=== PATIENT | female | born 1985 | race Caucasian/White ===

== ENCOUNTER 2016-12-27 09:17 | Emergency (ER) | payer OTHER ==
[~2016-12-27 09:17] MED LIST: ABILIFY5 M1; BENZOTROPINE; BENZTROPINE ME0.5 MG PO; BENZTROPINE MESY PO; BUSPIRONE10 M1 PO; CEL20 PO; CLONAZEPAM; COG1 PO; DEP250 PO; DILANTIN100 MG PO; DIVALPROEX; DIVALPROEX SOD500 MG PO; DOK100 M2 PO; DOK100 MG PO; ECONAZOLE NITRATE1% TP; FENOFIBRATE145 M1 PO; FERROUS SULFAT325 M2 PO; KEP500 PO; KEPPRA; KLO0.5 PO; LAC30L PO; MAG PO; MAGOXIDE; MEDROXYPROG150 MG/ML IM; MEDROXYPROGESTERONE PO; PAXIL20 MG PO; PHE30 PO; QUDEXY XR100 MG PO; SEROQUEL; SEROQUEL XR400 M1 PO; SEROQUEL XR400 MG PO; SEROQUEL200 MG PO; TEG200 PO; THERA-M1 TA1 PO; TRAZODONE; TRAZODONE HCL PO; TRAZODONE HCL150 MG PO; VITAMIN D1000 IU PO; VITAMIN D32000 I2 PO; [UNRECOGNIZED DRUG - OTHER]
[2016-12-27 10:09] LABS: UA SPECIFIC GRAVITY 1.025 (1.005-1.035); microscopic required? YES; urine erythrocyte TRACE (NEGATIVE)
[2016-12-27 10:13] LABS: BASOPHIL % 0.4 % (0-2); PLATELET COUNT 188 x10^3mcL (130-400); RED CELL DISTRIBUTION WIDTH 12.4 % (11.5-14.5)
[2016-12-27 10:31] LABS: T3 TOTAL 0.57 ng/mL
[2016-12-27 10:32] LABS: FREE T4 1.04 ng/dL (0.76-1.46); FREE THYROXINE INDEX 2.7 ug/dL (1.4-4.5); T4(THYROXINE) 7.6 ug/dL (4.7-13.3)
[2016-12-27 10:33] LABS: CALCIUM 9.1 mg/dL (8.5-10.1); CARBON DIOXIDE 20.7 mmol/L (21-32); CHLORIDE SERUM 106 mmol/L (98-107); CREATININE SERUM 0.9 mg/dL (0.6-1.0); GFR1 > 60 mL/min; GLUCOSE SERUM 121 mg/dL (74-106); POTASSIUM SERUM 3.4 mmol/L (3.5-5.1); SODIUM SERUM 140 mmol/L (136-145)
[2016-12-27 10:47] LABS: CK-MB < 0.5 ng/mL (0-3.6); CREATINE KINASE 68 U/L (26-192)
[2016-12-27 10:52] LABS: ALBUMIN 3.5 g/dL (3.4-5.0); ALKALINE PHOSPHATASE 71 U/L (46-116); ALT/SGPT 89 U/L (14-59); AST/SGOT 64 U/L (15-37); BILIRUBIN TOTAL 1.3 mg/dL (0.20-1.00); TOTAL PROTEIN, SERUM 8.1 g/dL (6.4-8.2)
[2016-12-27 11:35] VITALS: BP 113/78
[2016-12-27 11:46] LABS: C REACTIVE PROTEIN 33.8 mg/dL (<=0.9)
[2016-12-30 07:25] LABS: ERYTHROCYTE SED RATE 72 mm/hr (0-20)
== END 2016-12-27 12:12 | disposition home or self-care (01) ==
LOC: EDBD 09:17 → ED 09:17
PROVIDERS: Specialist
DX: N39.0 Urinary tract infection, site not specified (principal); I10 Essential (primary) hypertension
CPT/HCPCS: 36600; 83880; 84439; J0696; J1885; J7030

== ENCOUNTER 2017-01-16 02:03 | Emergency (ER) | payer OTHER ==
[~2017-01-16] VITALS: Ht 162.6 cm; Wt 113.4 kg
[2017-01-16 04:04] LABS: AMPHETAMINE QUAL UR POSITIVE (NEG <=1000)
[2017-01-16 06:10] VITALS: BP 123/76
== END 2017-01-16 06:10 | disposition home or self-care (01) ==
LOC: ED 02:03
PROVIDERS: Emergency Medicine
DX: F15.10 Other stimulant abuse, uncomplicated (principal); F19.10 Other psychoactive substance abuse, uncomplicated
CPT/HCPCS: Q0162

== ENCOUNTER 2017-02-03 19:39 | Emergency (ER) | payer OTHER ==
[2017-02-03 23:10] LABS: BASOPHIL % 0.8 % (0-2); PLATELET COUNT 229 x10^3mcL (130-400); RED CELL DISTRIBUTION WIDTH 13.3 % (11.5-14.5)
[2017-02-03 23:19] LABS: CARBON DIOXIDE 26.3 mmol/L (21-32); CHLORIDE SERUM 104 mmol/L (98-107); CREATININE SERUM 0.8 mg/dL (0.6-1.0); GFR1 > 60 mL/min; GLUCOSE SERUM 102 mg/dL (74-106); POTASSIUM SERUM 3.8 mmol/L (3.5-5.1); SODIUM SERUM 140 mmol/L (136-145)
[2017-02-03 23:25] LABS: ALBUMIN 3.8 g/dL (3.4-5.0); ALKALINE PHOSPHATASE 60 U/L (46-116); ALT/SGPT 37 U/L (14-59); AST/SGOT 25 U/L (15-37); TOTAL PROTEIN, SERUM 8.2 g/dL (6.4-8.2)
[2017-02-03 23:28] LABS: AMPHETAMINE QUAL UR NONE DETECTED (NEG <=1000)
[2017-02-03 23:46] VITALS: BP 124/82
== END 2017-02-03 23:47 | disposition home or self-care (01) ==
LOC: ED 19:39
PROVIDERS: Emergency Medicine
DX: R51 Headache (principal); R20.0 Anesthesia of skin; I10 Essential (primary) hypertension; F31.9 Bipolar disorder, unspecified; F79 Unspecified intellectual disabilities; F91.9 Conduct disorder, unspecified; Z79.1 Long term (current) use of non-steroidal anti-inflammatories (NSAID); Z79.899 Other long term (current) drug therapy
CPT/HCPCS: 36415

== ENCOUNTER 2017-07-24 17:42 | Emergency (ER) | payer OTHER ==
[~2017-07-24] VITALS: Ht 167.6 cm; Wt 104.3 kg
[2017-07-24 17:49] VITALS: Ht 167.6 cm; Wt 104.3 kg
[2017-07-24 18:59] LABS: BASOPHIL % 0.6 % (0-2); PLATELET COUNT 213 x10^3mcL (130-400); RED CELL DISTRIBUTION WIDTH 13.3 % (11.5-14.5)
[2017-07-24 19:07] LABS: CALCIUM 9.1 mg/dL (8.5-10.1); CARBON DIOXIDE 26.3 mmol/L (21-32); CHLORIDE SERUM 105 mmol/L (98-107); CREATININE SERUM 0.8 mg/dL (0.6-1.0); GFR1 > 60 mL/min; GLUCOSE SERUM 116 mg/dL (74-106); POTASSIUM SERUM 3.5 mmol/L (3.5-5.1); SODIUM SERUM 142 mmol/L (136-145)
[2017-07-24 19:11] LABS: ALBUMIN 3.5 g/dL (3.4-5.0); ALKALINE PHOSPHATASE 66 U/L (46-116); ALT/SGPT 58 U/L (14-59); AST/SGOT 48 U/L (15-37); LIPASE 123 IU/L (73-393); TOTAL PROTEIN, SERUM 7.7 g/dL (6.4-8.2)
[2017-07-24 20:48] VITALS: BP 125/55
== END 2017-07-24 20:48 | disposition home or self-care (01) ==
LOC: ED 17:42
PROVIDERS: Emergency Medicine
DX: G40.409 Other generalized epilepsy and epileptic syndromes, not intractable, without status epilepticus (principal)
CPT/HCPCS: 36415

== ENCOUNTER 2017-07-27 08:13 | Emergency (ER) | payer OTHER ==
[~2017-07-27] VITALS: Ht 157.5 cm; Wt 115.7 kg
[2017-07-27 08:18] VITALS: Ht 157.5 cm; Wt 115.7 kg
[2017-07-27 11:02] VITALS: BP 119/71
== END 2017-07-27 11:02 | disposition home or self-care (01) ==
LOC: ED 08:13
DX: R56.9 Unspecified convulsions (principal); I10 Essential (primary) hypertension; F31.9 Bipolar disorder, unspecified

== ENCOUNTER 2017-09-21 21:40 | Inpatient (IN) | payer OTHER ==
[~2017-09-21] VITALS: Ht 157.5 cm; Wt 118.8 kg
[~2017-09-21 21:40] MED LIST changes: +THERA-M W/MINER1 TAB PO; -THERA-M1 TA1 PO
[2017-09-21 22:32] LABS: microscopic required? NO
[2017-09-21 22:37] LABS: BASOPHIL % 0.8 % (0-2); PLATELET COUNT 190 x10^3mcL (130-400)
[2017-09-21 22:41] LABS: urine erythrocyte NEGATIVE (NEGATIVE)
[2017-09-21 22:50] LABS: CALCIUM 9.2 mg/dL (8.5-10.1); CARBON DIOXIDE 28.5 mmol/L (21-32); CHLORIDE SERUM 105 mmol/L (98-107); CREATININE SERUM 0.7 mg/dL (0.6-1.0); GFR1 > 60 mL/min; GLUCOSE SERUM 123 mg/dL (74-106); POTASSIUM SERUM 3.6 mmol/L (3.5-5.1); SODIUM SERUM 141 mmol/L (136-145)
[2017-09-21 22:55] LABS: AMPHETAMINE QUAL UR NONE DETECTED (NEG <=1000)
[2017-09-21 22:55] LABS: ALBUMIN 3.4 g/dL (3.4-5.0); ALKALINE PHOSPHATASE 77 U/L (46-116); ALT/SGPT 49 U/L (14-59); AST/SGOT 35 U/L (15-37); BILIRUBIN TOTAL 0.24 mg/dL (0.20-1.00); TOTAL PROTEIN, SERUM 7.5 g/dL (6.4-8.2)
[2017-09-22 00:31] VITALS: BP 116/61
[2017-09-22 01:50] LABS: MAGNESIUM 1.8 mg/dL (1.8-2.4); PHOSPHOROUS 3.4 mg/dL (2.5-4.9)
[2017-09-22 01:57] LABS: CHOLESTEROL/HDL RATIO 12.7
[2017-09-22 01:59] LABS: T3 TOTAL 0.89 ng/mL
[2017-09-22 02:01] LABS: FREE T4 0.91 ng/dL (0.76-1.46); FREE THYROXINE INDEX 2.6 ug/dL (1.4-4.5)
[2017-09-22 06:18] LABS: BASOPHIL % 0.4 % (0-2); CALCIUM 8.7 mg/dL (8.5-10.1); CARBON DIOXIDE 24.9 mmol/L (21-32); CHLORIDE SERUM 107 mmol/L (98-107); CREATININE SERUM 0.6 mg/dL (0.6-1.0); GFR1 > 60 mL/min; GLUCOSE SERUM 123 mg/dL (74-106); MAGNESIUM 1.8 mg/dL (1.8-2.4); PHOSPHOROUS 3.5 mg/dL (2.5-4.9); PLATELET COUNT 176 x10^3mcL (130-400); POTASSIUM SERUM 3.7 mmol/L (3.5-5.1); SODIUM SERUM 141 mmol/L (136-145)
[2017-09-22 06:23] VITALS: BP 95/50
[2017-09-22 08:03] VITALS: BP 109/64
[2017-09-22] MEDS ORDERED: SEROQUEL200 MG (11:46)
[2017-09-22] MEDS ORDERED: DIVALPROEX SOD500 M3 (11:46)
[2017-09-22] MEDS ORDERED: DOXEPIN HCL25 MG PO (12:05)
[2017-09-22 12:57] VITALS: BP 101/78
[2017-09-22 16:19] VITALS: BP 109/58
[2017-09-22 20:52] VITALS: BP 113/73
[2017-09-23 05:42] VITALS: BP 89/41
[2017-09-23 05:43] VITALS: BP 97/41
[2017-09-23 06:26] LABS: BASOPHIL % 0.6 % (0-2); PLATELET COUNT 185 x10^3mcL (130-400); RED CELL DISTRIBUTION WIDTH 12.6 % (11.5-14.5)
[2017-09-23 06:29] LABS: CALCIUM 8.7 mg/dL (8.5-10.1); CARBON DIOXIDE 24.3 mmol/L (21-32); CHLORIDE SERUM 107 mmol/L (98-107); CREATININE SERUM 0.6 mg/dL (0.6-1.0); GFR1 > 60 mL/min; GLUCOSE SERUM 87 mg/dL (74-106); POTASSIUM SERUM 3.7 mmol/L (3.5-5.1); SODIUM SERUM 141 mmol/L (136-145)
[2017-09-23 08:14] VITALS: BP 94/60
[2017-09-23] MEDS ORDERED: DIVALPROEX SOD500 M3 PO (11:32)
[2017-09-23] MEDS ORDERED: DOXEPIN HCL25 MG PO (11:33)
[2017-09-23] MEDS ORDERED: SEROQUEL XR400 M1 PO (11:33)
[2017-09-23] MEDS ORDERED: ABILIFY10 M2 PO (11:38)
[2017-09-23] MEDS ORDERED: LIPI10 PO (11:39)
[2017-09-23] MEDS ORDERED: PAXIL10 MG PO (11:45)
[2017-09-23] MEDS ORDERED: TRAZODONE50 M1 PO (11:48)
[2017-09-23] MEDS ORDERED: LEVOTHYROXIN0.025 M2 PO (11:51)
[2017-09-23] MEDS ORDERED: DIVALPROEX SOD500 M2 PO (11:55)
[2017-09-23] MEDS ORDERED: DOXEPIN HCL50 MG PO (11:56)
[2017-09-23] MEDS ORDERED: SEROQUEL XR200 M1 PO (11:57)
[2017-09-23 12:52] VITALS: BP 94/28
[2017-09-23 12:54] VITALS: BP 94/60
== END 2017-09-23 14:02 | DRG 880 ==
LOC: ED 21:40 → DU 23:50
PROVIDERS: Emergency Medicine; Family Medicine
DX: F41.9 Anxiety disorder, unspecified (principal); E44.1 Mild protein-calorie malnutrition; Z68.42 Body mass index [BMI] 45.0-49.9, adult; I10 Essential (primary) hypertension; F31.9 Bipolar disorder, unspecified; F79 Unspecified intellectual disabilities; E78.5 Hyperlipidemia, unspecified; E02 Subclinical iodine-deficiency hypothyroidism; E66.01 Morbid (severe) obesity due to excess calories; G40.909 Epilepsy, unspecified, not intractable, without status epilepticus; G47.00 Insomnia, unspecified; K21.9 Gastro-esophageal reflux disease without esophagitis; K72.90 Hepatic failure, unspecified without coma; Z80.8 Family history of malignant neoplasm of other organs or systems; Z82.49 Family history of ischemic heart disease and other diseases of the circulatory system; Z83.3 Family history of diabetes mellitus; Z79.899 Other long term (current) drug therapy; Z79.1 Long term (current) use of non-steroidal anti-inflammatories (NSAID)
CPT/HCPCS: 83880; 84439; 85378; J1644; Q0092

== ENCOUNTER 2017-09-24 18:15 | Emergency (ER) | payer OTHER ==
[~2017-09-24] VITALS: Ht 157.5 cm; Wt 77.1 kg
[~2017-09-24 18:15] MED LIST changes: +ABILIFY10 M2 PO; +DIVALPROEX SOD500 M2 PO; +DIVALPROEX SOD500 M3; +DIVALPROEX SOD500 M3 PO; +DOXEPIN HCL25 MG PO; +DOXEPIN HCL50 MG PO; +LEVOTHYROXIN0.025 M2 PO; +LIPI10 PO; +PAXIL10 MG PO; +SEROQUEL XR200 M1 PO; +SEROQUEL200 MG; +TRAZODONE50 M1 PO
[2017-09-24 18:16] VITALS: BP 145/101; Ht 157.5 cm; Wt 77.1 kg
== END 2017-09-24 20:40 | disposition left against medical advice (07) ==
LOC: ED 18:15
DX: Z53.21 Procedure and treatment not carried out due to patient leaving prior to being seen by health care provider (principal)

== ENCOUNTER 2017-09-25 17:41 | Emergency (ER) | payer OTHER ==
[~2017-09-25] VITALS: Ht 157.5 cm; Wt 136.1 kg
[2017-09-25 17:46] VITALS: BP 132/99; Ht 157.5 cm; Wt 136.1 kg
== END 2017-09-25 19:08 | disposition home or self-care (01) ==
LOC: ED 17:41
DX: Z04.71 Encounter for examination and observation following alleged adult physical abuse (principal); F31.9 Bipolar disorder, unspecified

== ENCOUNTER 2017-10-22 04:06 | Emergency (ER) | payer OTHER ==
[~2017-10-22] VITALS: Ht 160 cm; Wt 113.4 kg
[2017-10-22 04:14] VITALS: Ht 160 cm; Wt 113.4 kg
[2017-10-22 05:48] VITALS: BP 116/86
== END 2017-10-22 05:48 | disposition home or self-care (01) ==
LOC: ED 04:06
DX: S52.572A Other intraarticular fracture of lower end of left radius, initial encounter for closed fracture (principal); F31.9 Bipolar disorder, unspecified; I10 Essential (primary) hypertension; G40.909 Epilepsy, unspecified, not intractable, without status epilepticus; W01.0XXA Fall on same level from slipping, tripping and stumbling without subsequent striking against object, initial encounter; Y93.01 Activity, walking, marching and hiking; Y92.89 Other specified places as the place of occurrence of the external cause; Y99.8 Other external cause status

== ENCOUNTER 2018-11-30 18:31 | Emergency (ER) | payer OTHER ==
[~2018-11-30] VITALS: Ht 165.1 cm; Wt 113.4 kg
[2018-11-30 18:45] VITALS: Ht 165.1 cm; Wt 113.4 kg
[2018-11-30 19:32] LABS: RED CELL DISTRIBUTION WIDTH 13.2 % (11.5-14.5)
[2018-11-30 19:39] LABS: CALCIUM 9.4 mg/dL (8.5-10.1); CARBON DIOXIDE 19.3 mmol/L (21-32); CHLORIDE SERUM 108 mmol/L (98-107); CREATININE SERUM 0.8 mg/dL (0.6-1.0); GFR1 > 60 mL/min; GLUCOSE SERUM 128 mg/dL (74-106); POTASSIUM SERUM 3.7 mmol/L (3.5-5.1); SODIUM SERUM 141 mmol/L (136-145)
[2018-11-30 19:41] LABS: BASOPHIL % 1.4 % (0-2)
[2018-11-30 19:42] LABS: PLATELET COUNT 54 x10^3mcL (130-400)
[2018-11-30 19:43] LABS: microscopic required? NO
[2018-11-30 19:43] LABS: ALBUMIN 3.5 g/dL (3.4-5.0); ALKALINE PHOSPHATASE 48 U/L (46-116); ALT/SGPT 33 U/L (14-59); AST/SGOT 17 U/L (15-37); BILIRUBIN TOTAL 0.16 mg/dL (0.20-1.00); MAGNESIUM 1.9 mg/dL (1.8-2.4); TOTAL PROTEIN, SERUM 7.3 g/dL (6.4-8.2)
[2018-11-30 19:57] LABS: UA SPECIFIC GRAVITY 1.015 (1.005-1.035); urine erythrocyte NEGATIVE (NEGATIVE)
[2018-11-30 20:12] LABS: AMPHETAMINE QUAL UR NONE DETECTED (See below)
[2018-11-30 23:02] VITALS: BP 132/87
== END 2018-11-30 23:02 | disposition home or self-care (01) ==
LOC: ED 18:31
PROVIDERS: Emergency Medicine
DX: G40.909 Epilepsy, unspecified, not intractable, without status epilepticus (principal); F31.9 Bipolar disorder, unspecified; F79 Unspecified intellectual disabilities; E66.9 Obesity, unspecified; I10 Essential (primary) hypertension; Z68.41 Body mass index [BMI] 40.0-44.9, adult
CPT/HCPCS: G0480; J1165

== ENCOUNTER 2019-02-05 17:33 | Emergency (ER) | payer OTHER ==
[~2019-02-05] VITALS: Ht 167.6 cm; Wt 86.2 kg
[2019-02-05 17:35] VITALS: Ht 167.6 cm; Wt 86.2 kg
[2019-02-05 18:28] LABS: BASOPHIL % 1.1 % (0-2); PLATELET COUNT 213 x10^3mcL (130-400); RED CELL DISTRIBUTION WIDTH 13.1 % (11.5-14.5)
[2019-02-05 18:31] LABS: CALCIUM 8.9 mg/dL (8.5-10.1); CARBON DIOXIDE 25.4 mmol/L (21-32); CHLORIDE SERUM 107 mmol/L (98-107); CREATININE SERUM 0.6 mg/dL (0.6-1.0); GFR1 > 60 mL/min; GLUCOSE SERUM 124 mg/dL (74-106); POTASSIUM SERUM 3.4 mmol/L (3.5-5.1); SODIUM SERUM 144 mmol/L (136-145)
[2019-02-05 18:36] LABS: ALBUMIN 3.8 g/dL (3.4-5.0); ALT/SGPT 36 U/L (14-59); AST/SGOT 18 U/L (15-37); BILIRUBIN TOTAL 0.2 mg/dL (0.20-1.00)
[2019-02-05 18:51] LABS: ALKALINE PHOSPHATASE 61 U/L (46-116); TOTAL PROTEIN, SERUM 7.9 g/dL (6.4-8.2)
[2019-02-05 20:13] VITALS: BP 110/60
== END 2019-02-05 20:13 | disposition home or self-care (01) ==
LOC: ED 17:33
PROVIDERS: Emergency Medicine
DX: G40.909 Epilepsy, unspecified, not intractable, without status epilepticus (principal); E87.6 Hypokalemia; I10 Essential (primary) hypertension; F31.9 Bipolar disorder, unspecified
CPT/HCPCS: 36415